=== PATIENT | female | born 1995 | race Caucasian/White ===

== ENCOUNTER 2018-05-28 06:23 | Day surgery (SDC) | payer MEDICAID ==
[~2018-05-28 06:23] MED LIST: Lactated Ringers 1,000 ML IV SCH; Sodium Chloride 0.9% 10 ML Syringe FLUSH PRN; Sodium Chloride 0.9% 2.5 ML Syringe FLUSH PRN; ceFAZolin 1 GM in Premix Bag 1 BAG IV ONE
[2018-05-28] MEDS ORDERED: Ondansetron 4 MG/2 ML SDV ONE (07:03)
[2018-05-28] MEDS ORDERED: Lidocaine 2% 5 ML SDV ONE (07:03)
[2018-05-28] MEDS ORDERED: Propofol 200 MG/20 ML SDV ONE ×3 (07:04→08:08)
[2018-05-28] MEDS ORDERED: Midazolam 1 MG/ML 2 ML SDV ONE (07:04)
[2018-05-28] MEDS ORDERED: fentaNYL 250 MCG/5 ML SDV ONE (07:04)
--- NOTE | 2018-05-28 07:16 | PCM.PREANE ---
Preanesthetic Assessment - Anesthesia/Transfusion/Family Hx Anesthesia History: No Prior Anesthesia Family History of Anesthesia Reaction: No Transfusion History: No Prior Transfusion(s) Intubation History: Unknown - Review of Systems General: No Symptoms Pulmonary: No Symptoms Cardiovascular: No Symptoms Gastrointestinal: No Symptoms Neurological: No Symptoms Other: Reports: None - Physical Assessment O2 Sat by Pulse Oximetry: 98 Respiratory Rate: 16 Vital Signs: Last Vital Signs Temp 36.4 C 05/28/18 06:43 Pulse 61 05/28/18 06:43 Resp 16 05/28/18 06:43 BP 119/82 05/28/18 06:43 Pulse Ox 98 05/28/18 06:43 Height: 1.68 m Weight: 68.946 kg ASA Class: 2 Mental Status: Alert & Oriented x3 Airway Class: Mallampati = 1 Dentition: Reports: Normal Dentition Thyro-Mental Finger Breadths: 2 Mouth Opening Finger Breadths: 3 ROM/Head Extension: Full Lungs: Clear to Auscultation, Normal Respiratory Effort Cardiovascular: Regular Rate, Regular Rhythm - Allergies Allergies/Adverse Reactions: Allergies Allergy/AdvReac Type Severity Reaction Status Date / Time No Known Allergies Allergy Verified 05/23/18 07:53 - Blood Blood Available: No - Anesthesia Plan Pre-Op Medication Ordered: None - Acknowledgements Anesthesia Type Planned: General Anesthesia Pt an Appropriate Candidate for the Planned Anesthesia: Yes Alternatives and Risks of Anesthesia Discussed w Pt/Guardian: Yes Pt/Guardian Understands and Agrees with Anesthesia Plan: Yes PreAnesthesia Questionnaire - Past Health History Medical/Surgical History: Denies Medical/Surgical History Neurological History: Reports: Migraines Psychiatric History: Reports: Anxiety, Depression Dermatologic History: Reports: Eczema - Past Surgical History Head Surgeries/Procedures: Reports: None HEENT Surgical History: Reports: Oral Surgery (mollars under local anesthesia) - SUBSTANCE USE Smoking Status *Q: Never Smoker Recreational Drug Use History: No - HOME MEDS Home Medications: Home Meds . [No Known Home Meds] 05/23/18 [History] - CURRENT (IN HOUSE) MEDS Current Meds: Current Medications Lactated Ringer's (Ringers, Lactated) 1,000 mls @ 125 mls/hr IV ASDIRECTED VINCENT Last Admin: 05/28/18 06:48 Dose: 125 mls/hr Sodium Chloride (Saline Flush) 10 ml FLUSH ASDIRECTED PRN PRN Reason: Keep Vein Open Sodium Chloride (Saline Flush) 2.5 ml FLUSH ASDIRECTED PRN PRN Reason: Keep Vein Open Discontinued Medications Fentanyl (Sublimaze) Confirm Administered Dose 250 mcg .ROUTE .STK-MED ONE Stop: 05/28/18 07:05 Cefazolin Sodium/Dextrose 1 gm (/ Premix) 50 mls @ 100 mls/hr IV ONETIME ONE Stop: 05/27/18 11:06 Lidocaine (Xylocaine-Mpf 2%) Confirm Administered Dose 5 ml .ROUTE .STK-MED ONE Stop: 05/28/18 07:04 Midazolam HCl (Versed 1 Mg/Ml) Confirm Administered Dose 2 mg .ROUTE .STK-MED ONE Stop: 05/28/18 07:05 Ondansetron HCl (Zofran) Confirm Administered Dose 4 mg .ROUTE .STK-MED ONE Stop: 05/28/18 07:04 Propofol (Diprivan 20 Ml) Confirm Administered Dose 200 mg .ROUTE .STK-MED ONE Stop: 05/28/18 07:05
--- NOTE | 2018-05-28 07:27 | PCM.PREANE ---
Preanesthetic Assessment - Anesthesia/Transfusion/Family Hx Anesthesia History: No Prior Anesthesia Transfusion History: No Prior Transfusion(s) - Physical Assessment O2 Sat by Pulse Oximetry: 98 Respiratory Rate: 16 Vital Signs: Last Vital Signs Temp 36.4 C 05/28/18 06:43 Pulse 61 05/28/18 06:43 Resp 16 05/28/18 06:43 BP 119/82 05/28/18 06:43 Pulse Ox 98 05/28/18 06:43 Height: 1.68 m Weight: 68.946 kg - Allergies Allergies/Adverse Reactions: Allergies Allergy/AdvReac Type Severity Reaction Status Date / Time No Known Allergies Allergy Verified 05/23/18 07:53 PreAnesthesia Questionnaire - Past Health History Medical/Surgical History: Denies Medical/Surgical History Neurological History: Reports: Migraines Psychiatric History: Reports: Anxiety, Depression Dermatologic History: Reports: Eczema - Past Surgical History Head Surgeries/Procedures: Reports: None HEENT Surgical History: Reports: Oral Surgery (molla) - SUBSTANCE USE Smoking Status *Q: Never Smoker Recreational Drug Use History: No - HOME MEDS Home Medications: Home Meds . [No Known Home Meds] 05/23/18 [History] - CURRENT (IN HOUSE) MEDS Current Meds: Current Medications Lactated Ringer's (Ringers, Lactated) 1,000 mls @ 125 mls/hr IV ASDIRECTED VINCENT Last Admin: 05/28/18 06:48 Dose: 125 mls/hr Sodium Chloride (Saline Flush) 10 ml FLUSH ASDIRECTED PRN PRN Reason: Keep Vein Open Sodium Chloride (Saline Flush) 2.5 ml FLUSH ASDIRECTED PRN PRN Reason: Keep Vein Open Discontinued Medications Fentanyl (Sublimaze) Confirm Administered Dose 250 mcg .ROUTE .STK-MED ONE Stop: 05/28/18 07:05 Cefazolin Sodium/Dextrose 1 gm (/ Premix) 50 mls @ 100 mls/hr IV ONETIME ONE Stop: 05/27/18 11:06 Lidocaine (Xylocaine-Mpf 2%) Confirm Administered Dose 5 ml .ROUTE .STK-MED ONE Stop: 05/28/18 07:04 Midazolam HCl (Versed 1 Mg/Ml) Confirm Administered Dose 2 mg .ROUTE .STK-MED ONE Stop: 05/28/18 07:05 Ondansetron HCl (Zofran) Confirm Administered Dose 4 mg .ROUTE .STK-MED ONE Stop: 05/28/18 07:04 Propofol (Diprivan 20 Ml) Confirm Administered Dose 200 mg .ROUTE .STK-MED ONE Stop: 05/28/18 07:05
[2018-05-28] MEDS ORDERED: Bupivacaine 0.5% 30 ML SDV ONE (07:50)
[2018-05-28] MEDS ORDERED: Sodium Chloride 0.9% 20 ML ONE (07:57)
[2018-05-28] MEDS ORDERED: ceFAZolin 1 GM Vial ONE (07:57)
[2018-05-28] MEDS ORDERED: Albuterol 0.083% 2.5 MG/3 ML Neb Soln NEB PRN (08:20)
[2018-05-28] MEDS ORDERED: Atropine 1 MG/ML SDV IVPUSH PRN ×2 (08:20)
[2018-05-28] MEDS ORDERED: 50% Dextrose in Water 50 ML Syringe IVPUSH PRN (08:20)
[2018-05-28] MEDS ORDERED: EPINEPHrine 1 MG/1 ML Amp IVPUSH ONE (08:20)
[2018-05-28] MEDS ORDERED: Naloxone 0.4 MG/ML Syringe IVPUSH PRN (08:20)
[2018-05-28] MEDS ORDERED: fentaNYL 100 MCG/2 ML SDV IVPUSH PRN (08:20)
--- NOTE | 2018-05-28 08:33 | PCM.OPNOTE ---
- General Post-Op/Procedure Note Date of Surgery/Procedure: 05/28/18 Operative Procedure(s): Pilondial cyst excision Findings: Multiple midline pits along gluteal cleft Pre Op Diagnosis: Pilondial cyst disease Post-Op Diagnosis: same Anesthesia Technique: General LMA Primary Surgeon: Sonia Reed Fluid Replacement, Intraop: 800 EBL in mLs: 10 Condition: Good
--- NOTE | 2018-05-28 12:43 | OR ---
SURGEON: ELLIOT MAYER MD DATE OF PROCEDURE: 05/28/2018 PREOPERATIVE DIAGNOSIS: Pilonidal cyst disease. POSTOPERATIVE DIAGNOSIS: Pilonidal cyst disease. PROCEDURE PERFORMED: Excision of pilonidal cyst. ANESTHESIA: General LMA. FLUIDS: 800 mL of crystalloid. ESTIMATED BLOOD LOSS: 10 mL. FINDINGS: Multiple pits along the gluteal cleft. A 6 x 4 x 2 cm piece of tissue removed containing these pits. COMPLICATIONS: None. 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 I explained that the definitive treatment for this is excision of these pits. We discussed the procedure, expected perioperative course, and risks including bleeding, infection, or damage to surrounding structures including perforation. The patient verbalized understanding and wishes to proceed. PROCEDURE IN DETAIL: The patient was brought into the OR on the OR cart and placed in the left lateral decubitus position. A time-out was completed verifying the patient's name, age, date of , allergies, and procedure to be performed. General LMA anesthesia was induced. The gluteal cleft and surrounding tissue were prepped and draped in usual standard fashion. I anesthetized the gluteal cleft with 20 mL of 0.5% Marcaine plain. An elliptical incision was then made along the gluteal cleft to include all of the midline pits. Electrocautery was then used to dissect down through the subcutaneous fat down to the muscular fascia. I then undermined this piece of tissue and removed it. It was placed in a jar, labeled as pilonidal cyst disease. The piece of tissue measured 6 x 4 x 2 cm in size. The wound was then inspected and hemostasis was achieved using electrocautery. I then placed interrupted 2-0 chromic sutures around the wound, bringing the skin down to the level of the muscular fascia. The wound was then packed with saline soaked 4 x 4 gauze and covered with dry 4 x 4 gauze. This was secured in place using Medipore tape. The patient tolerated the procedure well and was taken to the PACU in stable condition. All counts were complete and correct at the end of the case. QUEENIE / MANSOOR /[id number]
== END 2018-05-28 09:58 | disposition home or self-care (01) ==
LOC: MW.SDS 06:23
PROVIDERS: ATTEND Surgery
DX: L05.01 Pilonidal cyst with abscess (principal); F41.9 Anxiety disorder, unspecified; F32.9 Major depressive disorder, single episode, unspecified
CPT/HCPCS: 11771; 81025; J0690; J2001; J2250; J2704; J3010; J3490; J7120; 00300; 88304; J2405